=== PATIENT | female | born 1980 | race Hispanic/Latino ===

== ENCOUNTER 2017-02-03 19:44 | Emergency (ER) | payer OTHER ==
[2017-02-03 20:09] VITALS: TEMP 98.2
[2017-02-03] MEDS ORDERED: Lidocaine 1% Inj (20ml) ONE (21:01)
[2017-02-03] MEDS ORDERED: Tmp-Smz 800 mg-160 mg DS Tab PO STA (22:43)
[2017-02-03] MEDS ORDERED: Oxycodone/Acetaminophen 5/325 mg Tab PO STA (22:43)
--- NOTE | 2017-02-03 23:02 | ED PDOC ---
Arrival/HPI - General Chief Complaint: Abnormal Skin Integrity Time Seen by Provider: 02/03/17 20:51 Historian: Patient - History of Present Illness Narrative History of Present Illness (Text): 02/04/17 00:38 36-year-old female presents today with a 2 day history of left labial swelling. Patient states she noticed a pressure in the left side of the labia started to do warm soaks and developed a large abscess to the left side of the labia. Denies fevers or chills. No chest pain or shortness of breath. No abdominal pain. No urinary symptoms. Patient rates the pain as a 10 out of 10 throbbing pain. Time/Duration: Other (2 days) Symptom Onset: Gradual Symptom Course: Worsening Quality: Throbbing Severity Level: 10 Past Medical History - Provider Review Nursing Documentation Reviewed: Yes - Travel History Have you recently traveled outside [place] w/in the past 3 mons?: No - Infectious Disease Hx of Infectious Diseases: None - Reproductive Menopause: No - Cardiac Hx Cardiac Disorders: No - Pulmonary Hx Respiratory Disorders: No - Neurological Hx Neurological Disorder: No - HEENT Hx HEENT Disorder: No - Renal Hx Renal Disorder: Yes Hx Kidney Stones: Yes - Endocrine/Metabolic Hx Endocrine Disorders: No - Hematological/Oncological Hx Blood Disorders: No - Integumentary Hx Dermatological Disorder: No - Musculoskeletal/Rheumatological Hx Musculoskeletal Disorders: No - Gastrointestinal Hx Gastrointestinal Disorders: No - Genitourinary/Gynecological Hx Genitourinary Disorders: No - Psychiatric Hx Psychophysiologic Disorder: No Hx Substance Use: No - Surgical History Hx Section: Yes (x 2) - Anesthesia Hx Anesthesia: Yes Hx Anesthesia Reactions: No Hx Malignant Hyperthermia: No Family/Social History - Physician Review Nursing Documentation Reviewed: Yes Family/Social History: Unknown Family HX Smoking Status: Never Smoked Hx Alcohol Use: No Hx Substance Use: No Allergies/Home Meds Allergies/Adverse Reactions: Allergies No Known Allergies Allergy (Verified 02/03/17 20:09) Review of Systems - Review of Systems Constitutional: absent: Fatigue, Fevers Respiratory: absent: SOB, Cough Cardiovascular: absent: Chest Pain, Palpitations Gastrointestinal: absent: Abdominal Pain, Nausea, Vomiting Genitourinary Female: Other (left-sided labial swelling). absent: Dysuria, Frequency, Hematuria, Vaginal Bleeding, Vaginal Discharge Musculoskeletal: absent: Arthralgias, Back Pain, Neck Pain Skin: absent: Pruritis Neurological: absent: Headache, Dizziness Psychiatric: absent: Anxiety Physical Exam Vital Signs Reviewed: Yes Vital Signs Temp Pulse Resp BP Pulse Ox 02/03/17 23:30 69 16 112/78 97 02/03/17 20:05 98.2 F 96 H 18 120/78 99 Temperature: Afebrile Blood Pressure: Normal Pulse: Regular Respiratory Rate: Normal Appearance: Positive for: Well-Appearing, Non-Toxic, Comfortable Pain Distress: None Mental Status: Positive for: Alert and Oriented X 3 - Systems Exam Head: Present: Atraumatic Respiratory/Chest: Present: Clear to Auscultation Cardiovascular: Present: Regular Rate and Rhythm Genitourinary/Pelvic Exam: Present: Normal External Genitalia (large round tender fluctuant mass to the left side of the labia adjacent to the clitoral fong. Minimal erythema.). No: Vaginal Discharge Neurological: Present: GCS=15 Skin: Present: Warm, Dry Psychiatric: Present: Alert, Oriented x 3 Medical Decision Making ED Course and Treatment: 02/04/17 00:42 Patient is nontoxic well-appearing in no distress. Vital signs are stable. Patient with large left sided labial abscess. Patient was seen and evaluated by Dr. Burdick procedure note; left labia; 0.5cc 1%lidocaine injected locally over central fluctuance; Needle aspiration performed using 18 gauge needle and 10cc syringe. 5cc of purulent discharge removed. Pain improved. Swelling decreased. pt tolerated procedure well; no complications. 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 She was advised to return if symptoms worsen or persist or if new concerning symptoms develop Patient verbalizes understanding of discharge instructions and need for immediate followup. all aspects of this case were discussed the attending of record. Impression: Labial abscess Motrin one tablet every 6 hours as needed for pain Percocet one tablet every 6 hours as needed for moderate to severe pain: May cause drowsiness Bactrim DS: One tablet twice daily x7 days Keflex; 1 capsule 4 times daily x 7 days. Warm compresses and warm soaks frequently Follow up with the [facility] TH[facility]ENER OPERATOR within the next 2 days. Return immediately if symptoms worsen persist or if new symptoms develop: High fevers, increasing pain, increasing redness, swelling or if any other concerning symptoms develop. - Medication Orders Current Medication Orders: Discontinued Medications Cephalexin Monohydrate (Keflex) 500 mg PO STAT STA PRN Reason: Protocol Stop: 02/03/17 22:44 Last Admin: 02/03/17 23:26 Dose: 500 mg Ketorolac Tromethamine (Toradol) 60 mg IM STAT STA Stop: 02/03/17 20:52 Last Admin: 02/03/17 21:12 Dose: 60 mg Lidocaine HCl (Lidocaine 1% (20ml)) Confirm Administered Dose 20 ml .ROUTE .STK- MED ONE Stop: 02/03/17 21:02 Oxycodone/Acetaminophen (Percocet 5/325 Mg Tab) 1 tab PO STAT STA Stop: 02/03/17 22:44 Last Admin: 02/03/17 23:26 Dose: 1 tab Trimethoprim/Sulfamethoxazole (Bactrim Ds Tab) 1 tab PO STAT STA PRN Reason: Protocol Stop: 02/03/17 22:44 Last Admin: 02/03/17 23:26 Dose: 1 tab Disposition/Present on Arrival - Present on Arrival Any Indicators Present on Arrival: No History of DVT/PE: No History of Uncontrolled Diabetes: No Urinary Catheter: No History of Decub. Ulcer: No History Surgical Site Infection Following: Obstetrical/Gynecological Surgery - Disposition Have Diagnosis and Disposition been Completed?: Yes Diagnosis: Left genital labial abscess Disposition: HOME/ ROUTINE Disposition Time: 22:59 Patient Plan: Discharge Condition: GOOD Discharge Instructions (ExitCare): Abscess (ED) Additional Instructions: Motrin one tablet every 6 hours as needed for pain Percocet one tablet every 6 hours as needed for moderate to severe pain: May cause drowsiness Bactrim DS: One tablet twice daily x7 days Keflex; 1 capsule 4 times daily x 7 days. Warm compresses and warm soaks frequently Follow up with the [facility] THICKENER OPERATOR within the next 2 days. Return immediately if symptoms worsen persist or if new symptoms develop: High fevers, increasing pain, increasing redness, swelling or if any other concerning symptoms develop. Prescriptions: Cephalexin [Keflex] 500 mg PO QID #28 capsule oxyCODONE/Acetaminophen [Percocet 5/325 mg Tab] 1 tab PO Q6H PRN #10 tab PRN Reason: moderate to severe pain Sulfamethoxazole/Trimethoprim [Bactrim DS 800 mg-160 mg] 1 tab PO BID #14 tab Referrals: Abigail Turcios MD [Primary Care Provider] - Follow up with primary Isabela Arellano MD [Staff Provider] - [facility] [[facility] - Follow up with primary Forms: [employer] (Greek), WORK NOTE
[2017-02-03 23:31] VITALS: BP 112/78; PULSE 69; RESP 16; O2SAT 97
== END 2017-02-03 23:38 | disposition home or self-care (01) ==
LOC: MERGE 19:44 → ED 19:44
DX: N76.4 Abscess of vulva (principal)
CPT/HCPCS: 56405; 96372; 99283; J1885

== ENCOUNTER 2018-02-26 16:53 | Emergency (ER) | payer SELFPAY ==
[2018-02-26 17:31] VITALS: RESP 18; TEMP 98.4
[2018-02-26 17:47] VITALS: BMI 27.4
[2018-02-26] MEDS ORDERED: Tmp-Smz 800 mg-160 mg DS Tab PO STA (17:47)
--- NOTE | 2018-02-26 17:52 | ED PDOC ---
Arrival/HPI - General Time Seen by Provider: 02/26/18 17:30 Historian: Patient - History of Present Illness Narrative History of Present Illness (Text): 02/26/18 17:30 This 37 yo female presents to this ED c/o left vulva abscess x 2 days. Patient stated she had similar symptoms in the past, but this time is more mild. Patient denies urinary symptoms, drainage, vaginal discharge, or fever. Time/Duration: Other (see hpi) Context: Home Past Medical History - Provider Review Nursing Documentation Reviewed: Yes - Infectious Disease Hx of Infectious Diseases: None - Cardiac Hx Cardiac Disorders: No - Pulmonary Hx Respiratory Disorders: No - Neurological Hx Neurological Disorder: No - HEENT Hx HEENT Disorder: No - Renal Hx Renal Disorder: Yes Hx Kidney Stones: Yes - Endocrine/Metabolic Hx Endocrine Disorders: No - Hematological/Oncological Hx Blood Disorders: No - Integumentary Hx Dermatological Disorder: No - Musculoskeletal/Rheumatological Hx Musculoskeletal Disorders: No - Gastrointestinal Hx Gastrointestinal Disorders: No - Genitourinary/Gynecological Hx Genitourinary Disorders: No - Psychiatric Hx Psychophysiologic Disorder: No Hx Substance Use: No - Surgical History Hx Section: Yes (x 2) - Anesthesia Hx Anesthesia: Yes Hx Anesthesia Reactions: No Hx Malignant Hyperthermia: No Family/Social History - Physician Review Nursing Documentation Reviewed: Yes Family/Social History: Other (noncontributory) Smoking Status: Never Smoked Hx Alcohol Use: No Hx Substance Use: No Allergies/Home Meds Allergies/Adverse Reactions: Allergies No Known Allergies Allergy (Verified 09/08/15 19:01) Review of Systems - Review of Systems Constitutional: Normal. absent: Fatigue, Weight Change, Fevers Eyes: Normal ENT: Normal Respiratory: Normal Cardiovascular: Normal Gastrointestinal: Normal Genitourinary Female: Other (see hpi) Musculoskeletal: Normal Skin: Normal Neurological: Normal Endocrine: Normal Hemo/Lymphatic: Normal Psychiatric: Normal Physical Exam Vital Signs Temp Pulse Resp BP Pulse Ox 02/26/18 17:30 98.4 F 79 18 110/67 97 Temperature: Afebrile Blood Pressure: Normal Pulse: Regular Respiratory Rate: Normal Appearance: Positive for: Well-Appearing, Non-Toxic, Comfortable Pain Distress: None Mental Status: Positive for: Alert and Oriented X 3 - Systems Exam Head: Present: Atraumatic, Normocephalic Pupils: Present: PERRL Extroacular Muscles: Present: EOMI Conjunctiva: Present: Normal Mouth: Present: Moist Mucous Membranes Neck: Present: Normal Range of Motion Respiratory/Chest: Present: Clear to Auscultation, Good Air Exchange. No: Respiratory Distress, Accessory Muscle Use, Wheezes, Retracting, Rhonchi Cardiovascular: Present: Regular Rate and Rhythm, Normal S1, S2. No: Murmurs Abdomen: No: Tenderness Genitourinary/Pelvic Exam: Present: Other ((+) left labia indurated area. No fluctuance, no drainage, no tenderness, no cellulitis. Sonia (EMT) was real time analyst). No: Vaginal Discharge, Vaginal Bleeding, Vaginal Lesions, Adenexal Tenderness, Adenexal Mass, Odor Upper Extremity: Present: Normal Inspection, Normal ROM, NORMAL PULSES Lower Extremity: Present: Normal Inspection, Normal ROM Neurological: Present: GCS=15, CN II-XII Intact, Speech Normal Skin: Present: Warm, Dry, Normal Color. No: Rashes Psychiatric: Present: Alert, Oriented x 3, Normal Insight, Normal Concentration Medical Decision Making ED Course and Treatment: 02/26/18 17:53 Patient came c/o left labia indurated abscess x 2 days. On palpation, the indurated area was non-tender, no drainage or erythema. Patient was recommended to take abx, and apply warmth compress for at least 3 days. To return to ED if induration worsen, or pain worsen. Re-evaluation Time: 17:55 Reassessment Condition: Re-examined, Improved Disposition/Present on Arrival - Present on Arrival Any Indicators Present on Arrival: No History of DVT/PE: No History of Uncontrolled Diabetes: No Urinary Catheter: No History Surgical Site Infection Following: Obstetrical/Gynecological Surgery - Disposition Have Diagnosis and Disposition been Completed?: Yes Diagnosis: Bartholin's gland infection Disposition: HOME/ ROUTINE Disposition Time: 17:55 Patient Plan: Discharge Condition: GOOD Discharge Instructions (ExitCare): Bartholin's Gland Cyst Additional Instructions: Call private doctor for follow up visit in 1-2 days. Apply warmth compress on affected area 4 or 5 times daily for at least 5 days. Take medication as instructed. Return to emergency if the area becomes very painful or if pus develop. Prescriptions: Ibuprofen [Motrin] 600 mg PO Q8 PRN #20 tab PRN Reason: Pain, Severe (8-10) Sulfamethoxazole/Trimethoprim [Bactrim DS 800 mg-160 mg] 1 tab PO BID #20 tab Referrals: [facility] [Outside] - [facility] [[facility]] - Follow up with primary Forms: WORK NOTE
[2018-02-26 18:12] VITALS: BP 124/78; PULSE 68; O2SAT 96
== END 2018-02-26 18:11 | disposition home or self-care (01) ==
LOC: ED 16:53
DX: N75.8 Other diseases of Bartholin's gland (principal)